=== PATIENT | male | born 1975 | race Caucasian/White ===

== ENCOUNTER 2018-02-01 08:37 | Emergency (ER) | payer BC ==
[~2018-02-01] VITALS: Ht 180.3 cm; Wt 100.0 kg
[~2018-02-01 08:37] MED LIST: Z.0.NO CURRENT MEDS
[2018-02-01 08:43] VITALS: BP 151/91; PULSE 111; RESP 19; TEMP 99; O2SAT 99
[2018-02-01 08:56] VITALS: RESP 19; O2SAT 100
[2018-02-01 09:08] LABS: AUTOMATED NEUTROPHIL # 9.6 TH/MM3 (1.8-7.7); BASOPHIL # 0.1 TH/MM3 (0-0.2); BASOPHIL % 0.4 % (0.0-2.0); EOSINOPHIL % 0.1 % (0.0-4.0); HEMATOCRIT 44.8 % (39.0-51.0); HEMOGLOBIN 15.2 GM/DL (13.0-17.0); LYMPH % 16.2 % (9.0-44.0); MEAN CELL VOLUME 92.3 FL (80.0-100.0); MEAN CORPUSCULAR HEMOGLOBIN 31.2 PG (27.0-34.0); MEAN CORPUSCULAR HGB CONC 33.9 % (32.0-36.0); MEAN PLATELET VOLUME 9.3 FL (7.0-11.0); MONO % 6.6 % (0.0-8.0); MONOCYTE # 0.8 TH/MM3 (0-0.9); NEUT % 76.7 % (16.0-70.0); PLATELET COUNT 238 TH/MM3 (150-450); RED BLOOD COUNT 4.85 MIL/MM3 (4.50-5.90); RED CELL DISTRIBUTION WIDTH 13.5 % (11.6-17.2); WHITE BLOOD COUNT 12.5 TH/MM3 (4.0-11.0)
[2018-02-01 09:27] LABS: BICARBONATE 19.8 MEQ/L (21.0-32.0); BLOOD UREA NITROGEN 7 MG/DL (7-18); CALCIUM 8.8 MG/DL (8.5-10.1); CHLORIDE 103 MEQ/L (98-107); CREATININE 0.82 MG/DL (0.60-1.30); GLOMERULAR FILTRATION RATE 103 ML/MIN (>89); GLUCOSE,RANDOM 79 MG/DL (74-106); SODIUM (NA) 136 MEQ/L (136-145)
[2018-02-01] MEDS ORDERED: SODIUM CHLOR 0.9% 1000 ML INJ 1,000 ML IV ONE ×2 (09:30)
[2018-02-01] MEDS ORDERED: LORazepam 2 MG/ML VIAL IV PUSH ONE (09:30)
[2018-02-01 09:32] LABS: TROPONIN I LESS THAN 0.02 NG/ML (0.02-0.05)
--- NOTE | 2018-02-01 09:36 | RADRPT ---
EXAM DATE/TIME: 02/01/2018 09:04 [place] COMPARISON: No previous studies available for comparison. INDICATIONS : Left side chest pains with pressure. MEDICAL HISTORY : None. SURGICAL HISTORY : None. ENCOUNTER: Initial ACUITY: 2 days PAIN SCORE: 6/10 LOCATION: Left chest FINDINGS: A single view of the chest demonstrates the lungs to be symmetrically aerated without evidence of mas s, infiltrate or effusion. The cardiomediastinal contours are unremarkable. Osseous structures are intact. CONCLUSION: No acute disease. Brooks Prieto MD on February 01, 2018 at 9:33 Board Certified Radiologist. This report was verified electronically.
--- NOTE | 2018-02-01 09:55 | PD ---
HPI Chief Complaint: Chest Pain Time Seen by Provider: 08:46 Travel History International Travel<30 days: No Contact w/Intl Traveler<30days: No Traveled to known affect area: No History of Present Illness HPI 42-year-old male complains of chest tightness on the left side. He reports binging on alcohol for the past 2 days. He reports smoking methamphetamine about 36 hours ago as well. He describes some shortness of breath. He has had no cough or fever. He denies radiation of pain. There is no pleuritic chest pain. He states he was unable to sleep due to the chest pain so he came to the ED. Timing constant. Severity moderate. PFSH Past Medical History Medical History: Denies Significant Hx Diminished Hearing: No Tetanus Vaccination: > 5 Years Influenza Vaccination: No Past Surgical History Surgical History: No Previous Surgery Social History Alcohol Use: Yes (RARE) Tobacco Use: Yes Substance Use: Yes (smoke meth) Allergies-Medications (Allergen,Severity, Reaction): Coded Allergies: aspirin (Verified Allergy, Severe, Anaphylaxis, 02/01/18) Reported Meds & Prescriptions Reported Meds & Active Scripts Active No Active Prescriptions or Reported Medications Review of Systems Except as stated in HPI: all other systems reviewed are Neg General / Constitutional: No: Fever Cardiovascular: Positive: Chest Pain or Discomfort Respiratory: Positive: Shortness of Breath Physical Exam Narrative GENERAL: 42-year-old male no acute distress speaking sentences Vital Signs Date Time Temp Pulse Resp B/P (MAP) Pulse Ox O2 Delivery O2 Flow Rate FiO2 02/01/18 10:53 98.0 108 19 155/94 (114) 100 Room Air 02/01/18 10:00 97.8 104 17 150/90 (110) 99 Room Air 02/01/18 08:56 19 100 Room Air 02/01/18 08:56 100 Room Air 02/01/18 08:48 111 19 99 Room Air 02/01/18 08:43 99.0 111 19 151/91 (111) 99 SKIN: Warm and dry. HEAD: Atraumatic. Normocephalic. EYES: Pupils equal and round. No scleral icterus. No injection or drainage. ENT: No nasal bleeding or discharge. Mucous membranes pink and moist. NECK: Trachea midline. No JVD. CARDIOVASCULAR: Tachycardia. Regular. RESPIRATORY: No accessory muscle use. Clear to auscultation. Breath sounds equal bilaterally. GASTROINTESTINAL: Abdomen soft, non-tender, nondistended. Hepatic and splenic margins not palpable. MUSCULOSKELETAL: Extremities without clubbing, cyanosis, or edema. No obvious deformities. NEUROLOGICAL: Awake and alert. No obvious cranial nerve deficits. Motor grossly within normal limits. Five out of 5 muscle strength in the arms and legs. Normal speech. PSYCHIATRIC: No suicidal/homicidal ideation Data Data Last Documented VS Vital Signs Date Time Temp Pulse Resp B/P (MAP) Pulse Ox O2 Delivery O2 Flow Rate FiO2 02/01/18 10:53 98.0 108 19 155/94 (114) 100 Room Air Orders Orders Electrocardiogram (02/01/18 08:54) Complete Blood Count With Diff (02/01/18 08:54) Basic Metabolic Panel (Bmp) (02/01/18 08:54) Ckmb (Isoenzyme) Profile (02/01/18 08:54) Troponin I (02/01/18 08:54) Chest, Single Ap (02/01/18 08:54) Iv Access Insert/Monitor (02/01/18 08:54) Ecg Monitoring (02/01/18 08:54) Oxygen Administration (02/01/18 08:54) Oximetry (02/01/18 08:54) Drug Screen, Random Urine (02/01/18 09:02) Sodium Chlor 0.9% 1000 Ml Inj (Ns 1000 M (02/01/18 09:30) Sodium Chlor 0.9% 1000 Ml Inj (Ns 1000 M (02/01/18 09:30) Lorazepam Inj (Ativan Inj) (02/01/18 09:30) CKMB (02/01/18 08:45) CKMB% (02/01/18 08:45) Troponin I (02/01/18 10:45) Labs Laboratory Tests Test 02/01/18 08:45 02/01/18 09:35 02/01/18 10:55 White Blood Count 12.5 TH/MM3 Red Blood Count 4.85 MIL/MM3 Hemoglobin 15.2 GM/DL Hematocrit 44.8 % Mean Corpuscular Volume 92.3 FL Mean Corpuscular Hemoglobin 31.2 PG Mean Corpuscular Hemoglobin Concent 33.9 % Red Cell Distribution Width 13.5 % Platelet Count 238 TH/MM3 Mean Platelet Volume 9.3 FL Neutrophils (%) (Auto) 76.7 % Lymphocytes (%) (Auto) 16.2 % Monocytes (%) (Auto) 6.6 % Eosinophils (%) (Auto) 0.1 % Basophils (%) (Auto) 0.4 % Neutrophils # (Auto) 9.6 TH/MM3 Lymphocytes # (Auto) 2.0 TH/MM3 Monocytes # (Auto) 0.8 TH/MM3 Eosinophils # (Auto) 0.0 TH/MM3 Basophils # (Auto) 0.1 TH/MM3 CBC Comment DIFF FINAL Differential Comment Blood Urea Nitrogen 7 MG/DL Creatinine 0.82 MG/DL Random Glucose 79 MG/DL Calcium Level 8.8 MG/DL Sodium Level 136 MEQ/L Potassium Level 3.9 MEQ/L Chloride Level 103 MEQ/L Carbon Dioxide Level 19.8 MEQ/L Anion Gap 13 MEQ/L Estimat Glomerular Filtration Rate 103 ML/MIN Total Creatine Kinase 162 U/L Creatine Kinase MB 1.8 NG/ML Troponin I LESS THAN 0.02 NG/ML LESS THAN 0.02 NG/ML Urine Opiates Screen NEG Urine Barbiturates Screen NEG Urine Amphetamines Screen POS Urine Benzodiazepines Screen NEG Urine Cocaine Screen NEG Urine Cannabinoids Screen NEG MDM Medical Decision Making Medical Screen Exam Complete: Yes Emergency Medical Condition: Yes Medical Record Reviewed: Yes Differential Diagnosis NSTEMI, unstable angina, coronary vasospasm, PE, PTX, aortic dissection, pericarditis, myocarditis, endocarditis, PNA, esophageal disease, aneurysm, musculoskeletal etiologies, anxiety, cocaine/sympathomimetic abuse Narrative Course CBC & BMP Diagram 02/01/18 08:45 Calcium Level 8.8 Troponin is undetectable 2 EKG shows sinus tachycardia with a rate of 110 no ischemic injury pattern Last Impressions Chest X-Ray 02/01/18 0823 Signed Impressions: Service Date/Time: January 09:04 - CONCLUSION: No acute disease. Brooks Prieto MD The patient ambulated around the pod without difficulty and had no chest pain. He received 2 L of saline and a milligram of IV Ativan. He carries a very marginal risk profile for coronary disease. After drinking alcohol for 2 days and abusing methamphetamines likely that he has pain related to demand ischemia than actual coronary occlusion in this case is considered reasonably safely deferred. Diagnosis Primary Impression: Atypical chest pain Referrals: [facility] call for appointment Med/Other Pt SpecificInfo: No Change to Meds Scripts No Active Prescriptions or Reported Meds Disposition: 01 DISCHARGE HOME Condition: Partha Babb MD February 01, 2018 09:55
[2018-02-01 10:00] VITALS: BP 150/90; PULSE 104; RESP 17; TEMP 97.8; O2SAT 99
[2018-02-01 10:53] VITALS: BP 155/94; PULSE 108; RESP 19; TEMP 98; O2SAT 100
[2018-02-01 12:27] VITALS: BP 156/94; TEMP 97.6
--- NOTE | 2018-02-01 19:05 | EKG ---
Date Performed: 02/01/2018 Time Performed: 08:44:39 PTAGE: 42 years EKG: SINUS TACHYCARDIA ABNORMAL RHYTHM ECG INTERPRETATION BASED ON A DEFAULT AGE OF 39 YEARS NO PREVIOUS TRACING DOCTOR: Ramiro Moore Interpretating Date/Time 02/01/2018 19:04:56
== END 2018-02-01 12:28 | disposition home or self-care (01) ==
LOC: NEPE 08:37
DX: R07.89 Other chest pain (principal); F15.90 Other stimulant use, unspecified, uncomplicated; R00.0 Tachycardia, unspecified; R94.31 Abnormal electrocardiogram [ECG] [EKG]; R06.02 Shortness of breath; Z72.0 Tobacco use
CPT/HCPCS: 71045; 80048; 80307; 82550; 82552; 84484; 85025; 93005; 96361; 96374; 99285; J2060; J7030